=== PATIENT | female | born 1995 | race African-American/Black ===

== ENCOUNTER 2020-11-28 14:12 | Emergency (ER) | payer BC ==
[2020-11-28] MEDS ORDERED: Albuterol 200 PUFF (6.7GM INHALER) ONE (19:42)
[2020-11-28] MEDS ORDERED: diphenhydrAMINE 50 MG/ML VIAL ONE (19:43)
[2020-11-28] MEDS ORDERED: Metoclopramide HCl 10 MG/2 ML VIAL ONE (19:43)
[2020-11-28] MEDS ORDERED: Magnesium 2 GM/50 ML BAG (IN WATER) ONE (19:43)
== END 2020-11-28 22:15 | disposition home or self-care (01) ==
LOC: ERS 14:12
DX: U07.1 COVID-19 (principal); J45.909 Unspecified asthma, uncomplicated; Z79.899 Other long term (current) drug therapy
CPT/HCPCS: 71045; 96365; 96368; 96375; J1200; J2765; J3475